=== PATIENT | female | born 1985 | race Caucasian/White ===

== ENCOUNTER 2017-09-27 10:52 | Emergency (ER) | payer BC ==
[~2017-09-27] VITALS: Ht 167.6 cm; Wt 77.8 kg
[~2017-09-27 10:52] MED LIST: ENDOCET 5-3251 EACH PO; FIORICET,ESG1 TABLET PO; Feosol PO; Flagyl PO; IBUPROFEN800 MG PO; MACROBID100 MG PO; Pepcid PO; Tums,OsCal PO
[2017-09-27 12:37] LABS: HEMATOCRIT 36.7 % (36.0-46.0); HEMOGLOBIN 12.5 G/DL (11.9-15.5); MCH 30.6 PG (29.0-34.0); MCHC 34.1 G/DL (30.0-36.0); PLATELET COUNT 199 K/uL (156-360); RBC DIS.WIDTH-CV 12.7 % (11.8-14.6); RBC DIS.WIDTH-SD 41.7 % (39-53); RED BLOOD COUNT 4.08 M/uL (3.80-5.20); WHITE BLOOD COUNT 7.2 K/uL (4.1-10.2)
[2017-09-27 14:48] LABS: APPEARANCE SL.HAZY ((CLEAR)); BILIRUBIN NEGATIVE; BLOOD SMALL; COLOR YELLOW ((YELLOW)); GLUCOSE (STRIP) NEGATIVE; KETONES 80; LEUKOCYTES MODERATE; NITRITE NEGATIVE; PROTEIN (STRIP) 30; UROBILINOGEN 0.2 MG/DL (0.2-1.0)
[2017-09-27 14:58] LABS: BACTERIA NONE SEEN /HPF; EPITHELIAL CELLS 1+ /HPF; MUCUS 2+ /LPF
[2017-09-27 16:08] LABS: SOURCE URINE
[2017-09-27] MEDS ORDERED: MOTRIN600 MG PO (16:17)
[2017-09-27] MEDS ORDERED: BACTRIM,SEPT1 TABLET PO (16:17)
[2017-09-27 16:34] VITALS: BP 122/78
[2017-09-28 13:41] LABS: CHLAMYDIA TRACHOMATIS POSITIVE; NEISSERIA GONORRHOEAE NEGATIVE
== END 2017-09-27 16:36 | disposition home or self-care (01) ==
LOC: EME 10:52
PROVIDERS: Emergency Medicine
DX: N30.00 Acute cystitis without hematuria (principal); N83.209 Unspecified ovarian cyst, unspecified side; Z87.440 Personal history of urinary (tract) infections
CPT/HCPCS: 76856; 81003; 84702; 85027; 87070; 87086; 87210; 87491; 87591; 99281; 99284